=== PATIENT | female | born 1935 | race Caucasian/White ===

== ENCOUNTER 2019-03-18 15:56 | Inpatient (IN) | payer MEDICARE, BC ==
[~2019-03-18] VITALS: Ht 167.6 cm; Wt 104.2 kg
[~2019-03-18 15:56] MED LIST: AMLOPIDINE; CARDI-OMEGA1000 MG PO; CO Q-1050 MG PO; DIOVAN HCT 12.51 TA1 PO; DIOVAN320 MG PO; EPI EZ PEN1 MG/ML IM; METOPROLOL25 MG PO; NORCO 325 MG-7.1 TAB PO; SYNTHROID0.075 MG PO; ULTRAM 50MG TAB50 MG PO; VITAB-C1 TAB PO; [UNRECOGNIZED DRUG - REMARK]
[2019-05-12] VITALS (8 sets, daily range): BP systolic 140–186; BP diastolic 65–94; PULSE 63–114; TEMP 97.7–97.9
[2019-05-12] MEDS ORDERED: AMBIEN 5MG TABLE5 MG PO (03:49)
[2019-05-12] MEDS ORDERED: AMITRIPTYLINE H10 M1 PO (03:50)
[2019-05-12] MEDS ORDERED: KLONOPIN 0.5MG0.5 MG PO (03:50)
[2019-05-12] MEDS ORDERED: NEXIUM 24HR20 M1 PO (03:59)
[2019-05-12] MEDS ORDERED: FLONASEALLERGY NS (04:00)
[2019-05-12] MEDS ORDERED: LASIX 20MG TABL20 MG PO (04:00)
[2019-05-12] MEDS ORDERED: COZAAR100 MG PO (04:01)
[2019-05-12] MEDS ORDERED: MAGNESIUM ELEME30 MG PO (04:02)
[2019-05-12] MEDS ORDERED: TOPROL XL 50MG50 MG PO (04:05)
[2019-05-12] MEDS ORDERED: TYLENOL 325MG325 MG PO (04:07)
[2019-05-12] MEDS ORDERED: TYLENOL W/COD1 UDTAB PO (04:08)
[2019-05-12] MEDS ORDERED: B COMPLEX #11 TA1 PO (04:09)
--- NOTE | 2019-05-12 11:05 | NUR ---
PATIENT BACK IN ROOM 325 POST OP LTK. VSS. DENIES PAIN. LTK DRESSING IS CD&I WITH AQUACEL. TEDS & SCD'S TO BLE. NOTED +3 EDEMA TO BLE. PATIENT REPORTS BLE EDEMA CHRONIC. PEDAL PULSES WEAK. KEATING TO DD WITH CLEAR YELLOW URINE NOTED. IV FLUIDS INFUSING VIA PUMP IN LEFT WRIST IV. NO C/O N/V. LIQUIDS AT BEDSIDE. HEAD TO TOE WNL. FAMILY AT BEDSIDE. ORIENTED TO ROOM. CALL LIGHT IN REACH.
--- NOTE | 2019-05-12 16:42 | NUR ---
Shop Girl met with patient and patient's , Chase (ph#[phone]) to discuss discharge planning. Patient sees Dr. Corcoran for primary care and obtains medications from [facility] with no difficulties. Patient has a walker, cane, and walking stick at home to assist with mobility. Patient states she has Advance Directives completed but they copies are located at home. Patient states she would like to go to [facility] upon discharge and wants to be transported via [facility]. SW explained that Medicare would not cover cost of ambulance ride to [facility] and patient states she understands and will pay any out of pocket cost. SW presented Medicare.gov list of skilled facilities and patient choice form. Patient selected [facility] as first preference and [facility] as second preference, although she states she really would rather not go there. SW spoke with patient about weekend admission as a potential barrier to [facility] placement. SW faxed referral to [facility] and spoke with Sabra, Manufacturers Service Representative who advised she would review referral but was not sure if they could take an admission on Friday, which is target discharge date. YUE contacted Joanne at [facility] who advised they did not have any openings for a skilled placement. SW to continue to follow to ensure safe discharge.
--- NOTE | 2019-05-12 19:30 | NUR ---
Report received. Assumed care for night clerk auditor. A&Ox3. Assessment complete. VS stable. Dressing ro left eday-dowhdbjl-kawam dime size old drainageX3. Denies pain/nausea/shortness of breath. Fresh ice to cryocuff. Ott cath with clear yellow urine. Plan of care discussed for f/u appt/hs meds/pain meds/ambulation. States she can barely walk at home and nto to sure she can ambulate now. Will attempt. TEDs/SCDs bilat. Call light inr each. Bed in low/wheels locked. Will monitor.
[2019-05-13] VITALS: BP 148/72; PULSE 91; TEMP 98.3
[2019-05-13 04:00] VITALS: BP 152/80; PULSE 87; TEMP 98.1
[2019-05-13 06:35] LABS: HEMOGLOBIN 11.2 g/dl (12.5-16.0)
[2019-05-13 06:43] LABS: HEMATOCRIT 33.5 % (37.0-47.0)
[2019-05-13 07:44] VITALS: BP 157/74; PULSE 79; TEMP 97.4
--- NOTE | 2019-05-13 08:21 | NUR ---
Patient finished her breakfast while sitting in bed. Patient is alert and oriented, answers questions appropriately. Patient is in good spirits this morning, and reports pain is well controlled. Ott remains in place per order. Ott is draining yellow urine with some sediment present. Left knee is elevated on pillows with [place] hose, SCD, and cryocuff in place. Aquacel on left knee shows some blood, mainly towrd the distal end of the dressing. Edema present to BLE, 1-2 pitting. Patient states that this is normal for her. Patient denies nausea or further needs at this time, call light within reach.
--- NOTE | 2019-05-13 10:29 | NUR ---
Initial visit; Patient thanked Rig Builder for looking in on her, visiting and offering encouragement and prayer.
[2019-05-13 12:00] VITALS: BP 147/82; PULSE 76; TEMP 98.3
[2019-05-13 15:27] VITALS: BP 161/78; PULSE 77; TEMP 98
--- NOTE | 2019-05-13 16:13 | NUR ---
Special Weapons Unit Officer faxed updates to [facility] and contacted Sabra who advised she was unsure if they would be able to accept on Friday. YUE will continue to follow. YUE contacted [facility] to discuss transportation need on Friday as patient has expressed she wants EMS transport to [facility]. YUE spoke to Keli with EMS who advised an ABN would need to be signed. Keli faxed ABN to YUE. YUE met with patient and provided update on placement. SW also reviewed ABN form and patient expressed understanding then provided signature. Patient had SW speak with , Chase over the phone to provide update. SW explained that a second preference would be needed. Patient stated her second preference would be [facility]. SW discussed with patient that if [facility] can also not accept weekend admissions, patient will need to consider placement at a facility that accepts weekend admissions. Patient expressed understanding. YUE faxed referral to [facility] and spoke to Smiley about potential for a weekend admission. Smiley stated the referral would have to be reviewed before a definitive answer can be provided. YUE to continue to follow.
[2019-05-13 20:53] VITALS: BP 157/63; PULSE 74; TEMP 97.7
[2019-05-14] VITALS (7 sets, daily range): BP systolic 144–167; BP diastolic 69–89; PULSE 66–79; TEMP 97.3–98.8
--- NOTE | 2019-05-14 01:59 | NUR ---
PATIENT DOING WELL THROUGHOUT THE NIGHT. ALERT AND ORIENTED. DENIES PAIN OR NEED FOR PAIN MEDICATION. KEATING DRAINING HIREN URINE WITH SEDIMENT. SCDs AND TEDs TO BLE. 2+ EDEMA NOTED TO BILATERAL LOWER EXTREMITIES. PEDAL PULSES PALPABLE. IV TO L FA SALINE LOCKED. TOOK SCHEDULED MEDICATIONS CRUSHED IN APPLESAUCE. NO FURTHER NEEDS AT THIS TIME. WILL CONTINUE TO MONITOR.
--- NOTE | 2019-05-14 06:30 | NUR ---
KEATING CATHETER DC'D. 9ML FLUID REMOVED FROM BALLOON. PATIENT TOLERATED PROCEDURE. PERICARE DONE.
--- NOTE | 2019-05-14 07:39 | NUR ---
REPORT FROM NATHAN ATKINSON.
--- NOTE | 2019-05-14 08:53 | NUR ---
Patient up in bed to eat breakfast this morning, denies nausea. Cryocuff on left knee per order, aquacel is visible under chaim hose and has a small amount of strikethrough visible on bandage. BLE edemetous, patient states this is her baseline. Patient is alert and oriented, answers questions appropriately. Patient calls to attempt to use the bathroom, up with x2 assist and walker, patient ambulates to bathroom with minimal assitance. Patient continues to deny needs at this time, call light within reach.
--- NOTE | 2019-05-14 09:15 | NUR ---
AGREE WITH STUDENT ASSESMENTS.
--- NOTE | 2019-05-14 16:35 | NUR ---
Retort Cooler contacted [facility] to follow up on referral. SW was advised they were not able to accept weekend admission. YUE faxed updates to [facility] and contacted Sabra, [employer] who advised Dr. Mclaughlin, learning and development consultant physician will accept patient tomorrow 05/15. YUE provided update and report number to ECTOR Jacobs who advised she contacted Dr. Mclaughlin and gave report. YUE made note of RN report phone number and placed on patient chart. YUE provided update to patient and patient's RN, John. YUE to fax discharge orders to [facility] and set up EMS transport tomorrow.
--- NOTE | 2019-05-14 18:46 | NUR ---
REPORT TO NATHAN ATKINSON.
--- NOTE | 2019-05-15 01:04 | NUR ---
PATIENT DOING WELL THROUGHOUT NIGHT. UP TO CHAIR AND AMBULATED TO BATHROOM X2. X1 ASSIST TO CHANGE INTO NIGHT GOWN. NICOLE HOSE AND CRYOCUFF ON PER PROTOCOL. TOOK SCHEDULED MEDICATIONS CRUSHED IN PUDDING. AQUACELL TO L KNEE CDI. PRN MAICO GIVEN FOR MODERATE BACK PAIN. NO FURTHER NEEDS AT THIS TIME. WILL CONTINUE TO MONITOR.
[2019-05-15 03:56] VITALS: BP 137/49; PULSE 86; TEMP 97.8
[2019-05-15 07:45] VITALS: BP 177/83; PULSE 90; TEMP 98.2
[2019-05-15] MEDS ORDERED: ASPI325T6 PO (09:27)
[2019-05-15] MEDS ORDERED: ROXICODONE 55 MG/TAB PO (09:27)
[2019-05-15] MEDS ORDERED: NORCO 325 MG-7.1 TAB PO (09:27)
--- NOTE | 2019-05-15 10:15 | NUR ---
YUE faxed DC orders to [facility] at [phone]. YUE reviewed information with family. Patient has decided that she would like to try and get into their vehicle instead of taking EMS. YUE notifed [facility] of decision and nurse will complete nurse to nurse. Nothing follows.
[2019-05-15 11:28] VITALS: BP 153/83; PULSE 80; TEMP 97.7
--- NOTE | 2019-05-15 12:14 | NUR ---
Pt was discharged to [facility] at [facility]. Dressing changed prior to discharge. Report called to CHINA Davis. escorted to hospital via private car.
== END 2019-05-15 12:17 | DRG 470 ==
LOC: SURG 05-12 05:20 → JCC 05-12 07:30 → SURG 05-15 12:17
PROVIDERS: ADMIT Orthopaedic Surgery
PROC: 0SRD0J9 Replacement of Left Knee Joint with Synthetic Substitute, Cemented, Open Approach (ICD-10-PCS; principal; 2019-05-12 07:30)
DX: M17.12 Unilateral primary osteoarthritis, left knee (principal)
CPT/HCPCS: A4314; A9284; C1776; J0360; J0690; J1885; J2704; J3010; J7120

== ENCOUNTER → 2023-03-24 | Outpatient (CLI) | payer MEDICARE, BC ==
[~2023-03-24] MED LIST changes: +AMBIEN 5MG TABLE5 MG PO; +AMITRIPTYLINE H10 M1 PO; +ASPI325T6 PO; +ASPIRIN 81M81 MG/TA2 PO; +ATIVAN 0.50.5 MG/TAB PO; +B COMPLEX #11 TA1 PO; +COREG 6.256.25 MG/TA PO; +COZAAR 50MG50 MG/TAB PO; +COZAAR100 MG PO; +FLONASEALLERGY NS; +KLONOPIN 0.5MG0.5 MG PO; +LASIX 20MG TABL20 MG PO; +LEXAPRO 5MG5 MG PO; +LYRICA 50MG CAP50 MG PO; +MAGNESIUM ELEME30 MG PO; +MAGNESIUM GLYC100 MG PO; +MYLANTA PO; +NEXIUM 24HR20 M1 PO; +PRILOSEC 20MG20 MG PO; +ROXICODONE 55 MG/TAB PO; +SYNTHROID0.088 MG/T PO; +TOPROL XL 50MG50 MG PO; +TYLENOL 325MG325 MG PO; +TYLENOL W/COD1 UDTAB PO
== END ==
LOC: COL.RAD 12:29
DX: M17.11 Unilateral primary osteoarthritis, right knee (principal)

== ENCOUNTER → 2023-03-31 | Outpatient (CLI) | payer MEDICARE, BC | LOC: MHCPAIN 13:57 | DX: M17.11 Unilateral primary osteoarthritis, right knee (principal) | CPT/HCPCS: J3301 ==

== ENCOUNTER → 2023-07-08 | Outpatient (CLI) | payer MEDICARE, BC ==
[~2023-07-08] MED LIST changes: +Lidocaine PF 1% (10 MG/ML) 5 ML VIAL ONE; +Triamcinolone 40 MG/ML 1 ML VIAL ONE
== END ==
LOC: MHCPAIN 12:36
DX: M17.11 Unilateral primary osteoarthritis, right knee (principal); M48.062 Spinal stenosis, lumbar region with neurogenic claudication; G62.9 Polyneuropathy, unspecified
CPT/HCPCS: G0463; J3301

== ENCOUNTER → 2023-08-25 | Outpatient (CLI) | payer MEDICARE, BC ==
[~2023-08-25] MED LIST changes: -Lidocaine PF 1% (10 MG/ML) 5 ML VIAL ONE; -Triamcinolone 40 MG/ML 1 ML VIAL ONE
== END ==
LOC: MHCPAIN 13:39
DX: M48.062 Spinal stenosis, lumbar region with neurogenic claudication (principal); M16.11 Unilateral primary osteoarthritis, right hip; G62.9 Polyneuropathy, unspecified
CPT/HCPCS: G0463

== ENCOUNTER → 2023-08-28 | Outpatient (CLI) | payer MEDICARE, BC ==
[~2023-08-28] MED LIST changes: +Iohexol 300 - 10 ML VIAL ONE; +Lidocaine PF 2% (20 MG/ML) 2 ML VIAL ONE
== END ==
LOC: MHCPAIN 13:56
DX: M54.16 Radiculopathy, lumbar region (principal)
CPT/HCPCS: J1100; Q9967

== ENCOUNTER → 2023-10-28 | Outpatient (CLI) | payer MEDICARE, BC ==
[~2023-10-28] MED LIST changes: -Iohexol 300 - 10 ML VIAL ONE; -Lidocaine PF 2% (20 MG/ML) 2 ML VIAL ONE
== END ==
LOC: MHCPAIN 14:00
DX: M48.062 Spinal stenosis, lumbar region with neurogenic claudication (principal); M17.11 Unilateral primary osteoarthritis, right knee; G62.9 Polyneuropathy, unspecified
CPT/HCPCS: G0463